=== PATIENT | female | born 1940 | race Caucasian/White ===

== ENCOUNTER 2023-04-30 12:58 | Inpatient (IN) | payer MEDICARE ==
[~2023-04-30] VITALS: Ht 165.1 cm; Wt 71.3 kg
[~2023-04-30 12:58] MED LIST: CALC600T2 PO; DOXY100C5 PO; ERGO400T3 PO; HYDR25TA PO; OMEP10 PO
[2023-04-30] MEDS ORDERED: ASPIRIN 325 MG TABLET PO ONE (13:45)
[2023-04-30] MEDS ORDERED: NITROGLYCERIN 0.4 MG SUBLINGUAL TABLET #25 SL ONE (13:45)
[2023-04-30 14:09] LABS: BASOPHILS % (AUTO) 0.8 % (0.0-2.0); EOSINOPHILS % (AUTO) 1.6 % (1.0-6.0); HEMATOCRIT 38.8 % (36-46); HEMOGLOBIN 13.2 g/dL (12.0-16.0); LYMPHOCYTES # (AUTO) 1.6 K/uL (1.0-4.8); LYMPHOCYTES % (AUTO) 25.3 % (22.0-44.0); MEAN CORPUSCULAR HGB CONC 34.1 G/dL (31.0-37.0); MEAN CORPUSCULAR VOLUME 91 fL (80-100); MONOCYTES # (AUTO) 0.8 K/uL (0.1-1.0); MONOCYTES % (AUTO) 11.7 % (2.0-9.0); NEUTROPHILS # (AUTO) 3.9 K/uL (1.8-7.7); NEUTROPHILS % (AUTO) 60.6 % (40.0-70.0); PLATELET COUNT (AUTO) 242 K/uL (150-450); RED BLOOD CELL COUNT(AUTO) 4.27 MIL/uL (4.00-5.20); WHITE BLOOD COUNT (AUTO) 6.4 K/uL (4.5-11.0)
[2023-04-30 14:26] LABS: ALANINE AMINOTRANSFERASE 34 U/L (12-78); ALBUMIN 3.9 g/dL (3.4-5.0); ALKALINE PHOSPHATASE 103 U/L (46-116); ASPARTATE AMINOTRANSFERASE 36 U/L (15-37); BILIRUBIN,TOTAL 1.1 mg/dL (0.1-1.0); CALCIUM, TOTAL 9.6 mg/dL (8.8-10.5); CHLORIDE 101 mmol/L (98-107); CREATININE 1.06 mg/dL (0.60-1.30); GLOMERULAR FILTR. RATE CALC 50 mL/min (>60); LIPASE 105 U/L (16-77); POTASSIUM 3.3 mmol/L (3.5-5.1); SODIUM SERUM 139 mmol/L (136-145); TOTAL PROTEIN, SERUM 7.7 g/dL (6.4-8.2); UREA NITROGEN, BLOOD 17 mg/dL (7-18)
[2023-04-30 14:27] LABS: TROPONIN I-HIGH SENSITIVITY 7 ng/L (<51)
[2023-04-30 14:30] LABS: LACTIC ACID 1.1 mmol/L (0.4-2.0)
[2023-04-30 14:37] LABS: ANION GAP 14 mmol/L (8-16); CARBON DIOXIDE 24 mmol/L (22-29); GLUCOSE,RANDOM 88 mg/dL (70-110)
[2023-04-30 14:54] LABS: APPEARANCE,URINE CLEAR (CLEAR); BILIRUBIN,URINE NEGATIVE (NEGATIVE); COLOR,URINE COLORLESS (YELLOW); GLUCOSE, URINE (UA) NEGATIVE (NEGATIVE); KETONES,URINE NEGATIVE (NEGATIVE); LEUKOCYTE ESTERASE ,URINE LARGE (NEGATIVE); NITRATE,URINE NEGATIVE (NEGATIVE); OCCULT BLOOD,URINE NEGATIVE (NEGATIVE); PH,URINE 5.5 (5.0-8.0); PROTEIN,URINE NEGATIVE (NEGATIVE); SPECIFIC GRAVITIY, URINE 1.005 (1.003-1.030); UROBILINOGEN,URINE <=1.0 mg/dL (<=1.0)
[2023-04-30 15:22] LABS: RBC,URINE 0-2 /HPF (0-2)
[2023-04-30 15:23] LABS: BACTERIA,URINE Many /HPF (None Seen)
[2023-04-30] MEDS ORDERED: POTASSIUM CHLORIDE 20 MEQ ER TABLET PO ONE (16:30)
[2023-04-30 16:48] LABS: COVID AG,FIA SOURCE NASAL SWAB
[2023-04-30] MEDS ORDERED: HydrALAZINE HCL 20 MG/ML VIAL IVP ONE (17:15)
[2023-04-30] MEDS ORDERED: CefTRIAXone 1 GM/DEXTROSE 50 ML IV ONE (17:15)
[2023-04-30 17:16] LABS: SARS-COV2 (COVID) ANTIGEN,FIA Negative (Negative)
[2023-04-30 17:30] LABS: TROPONIN I-HIGH SENSITIVITY 7 ng/L (<51)
[2023-04-30] MEDS ORDERED: CloNIDine HCL 0.1 MG TABLET PO PRN (18:00)
[2023-04-30] MEDS ORDERED: POTASSIUM CHLORIDE 20 MEQ ER TABLET PO PRN (18:00)
[2023-04-30] MEDS ORDERED: MAGNESIUM HYDROXIDE SUSPENSION 30 ML UDCUP PO PRN (18:00)
[2023-04-30] MEDS ORDERED: POTASSIUM CHL 10 MEQ/WATER 50 ML IV PRN (18:00)
[2023-04-30] MEDS ORDERED: ACETAMINOPHEN 325 MG TABLET PO PRN (18:00)
[2023-04-30] MEDS ORDERED: SODIUM CHLORIDE 0.9% 100 ML ONE (19:56)
[2023-04-30] MEDS ORDERED: IOHEXOL 350 MG/ML 100 ML VIAL ONE (19:56)
[2023-04-30] MEDS: AmLODIPine BESYLATE 10 MG TABLET PO SCH (20:56)
[2023-04-30] MEDS: LOSARTAN POTASSIUM 25 MG TABLET PO SCH (21:00)
[2023-04-30 22:42] VITALS: BP 154/73; PULSE 80; RESP 18; TEMP 97.7
[2023-04-30 23:58] VITALS: BP 128/86; PULSE 70; RESP 18; TEMP 98.1
[2023-05-01 06:15] VITALS: BP 159/70; PULSE 65; RESP 19; TEMP 98
[2023-05-01 07:01] LABS: CALCIUM, TOTAL 9.9 mg/dL (8.8-10.5); CREATININE 0.91 mg/dL (0.60-1.30)
[2023-05-01 07:35] VITALS: BP 154/75; PULSE 68; RESP 18; TEMP 97.7
[2023-05-01] MEDS: HEPARIN SODIUM,PORCINE 5,000 UNITS/ML VIAL SQ SCH ×3 (08:05→16:27)
[2023-05-01] MEDS: FAMOTIDINE 20 MG TABLET PO SCH (08:06)
[2023-05-01] MEDS: LOSARTAN POTASSIUM 25 MG TABLET PO SCH (08:06)
[2023-05-01] MEDS: AmLODIPine BESYLATE 10 MG TABLET PO SCH (08:06)
[2023-05-01] MEDS: ASPIRIN 81 MG CHEWABLE TABLET PO SCH (08:06)
[2023-05-01] MEDS ORDERED: LOSARTAN POTASSIUM 25 MG TABLET PO ONE (10:00)
[2023-05-01 12:31] VITALS: BP 175/75; PULSE 72; RESP 18; TEMP 98.1
[2023-05-01] MEDS ORDERED: CefTRIAXone 1 GM/DEXTROSE 50 ML IV SCH (14:00)
[2023-05-01 15:51] VITALS: BP 124/60; PULSE 67; RESP 17; TEMP 97
[2023-05-01] MEDS ORDERED: SODIUM CHLORIDE 0.9% 250 ML IV ONE (19:00)
[2023-05-01 20:15] VITALS: BP 148/59; PULSE 59; RESP 18; TEMP 98.2
[2023-05-01] MEDS: LOSARTAN POTASSIUM 50 MG TABLET PO SCH (21:07)
[2023-05-02] MEDS: HEPARIN SODIUM,PORCINE 5,000 UNITS/ML VIAL SQ SCH ×2 (00:05→09:24)
[2023-05-02 00:12] VITALS: BP 158/64; PULSE 158; PULSE 66; RESP 18; TEMP 98.3
[2023-05-02 05:20] VITALS: BP 152/64; PULSE 64; RESP 18; TEMP 98.2
[2023-05-02 08:21] VITALS: BP 151/58; PULSE 56; RESP 18; TEMP 98.3
[2023-05-02] MEDS: FAMOTIDINE 20 MG TABLET PO SCH (09:23)
[2023-05-02] MEDS: AmLODIPine BESYLATE 10 MG TABLET PO SCH (09:23)
[2023-05-02] MEDS: ASPIRIN 81 MG CHEWABLE TABLET PO SCH (09:24)
[2023-05-02] MEDS: LOSARTAN POTASSIUM 50 MG TABLET PO SCH (10:58)
[2023-05-02] MEDS ORDERED: AMLO-258 PO (11:45)
[2023-05-02] MEDS ORDERED: CIPR250T6 PO (11:46)
[2023-05-02] MEDS ORDERED: LOSA-382 PO (11:46)
[2023-05-02 12:05] VITALS: BP 149/58; PULSE 63; RESP 19; TEMP 97.9
== END 2023-05-02 13:10 | disposition home or self-care (01) | DRG 305 ==
LOC: EMS 13:15 → 5S 18:42
PROVIDERS: ADMIT Internal Medicine; ATTEND Internal Medicine
DX: I16.0 Hypertensive urgency (principal); N39.0 Urinary tract infection, site not specified; E87.6 Hypokalemia; I10 Essential (primary) hypertension; Z20.822 Contact with and (suspected) exposure to COVID-19; I48.91 Unspecified atrial fibrillation; Z90.710 Acquired absence of both cervix and uterus; Z90.49 Acquired absence of other specified parts of digestive tract; Z86.73 Personal history of transient ischemic attack (TIA), and cerebral infarction without residual deficits; Z88.2 Allergy status to sulfonamides; Z79.01 Long term (current) use of anticoagulants; Z79.899 Other long term (current) drug therapy
CPT/HCPCS: 71045; 74174; 74175; 80048; 80053; 81001; 83605; 83690; 84484; 85025; 87040; 87086; 87186; 93005; 93306; 99291; J0360; J0696; J1644; J7050; Q9967; 36415-L1; 36415-TC

== ENCOUNTER 2023-10-02 16:34 | Emergency (ER) | payer MEDICARE ==
[~2023-10-02] VITALS: Ht 165.1 cm; Wt 72.7 kg
[~2023-10-02 16:34] MED LIST changes: +AMLO-258 PO; +CIPR250T6 PO; -DOXY100C5 PO; -HYDR25TA PO; +LOSA-382 PO; -OMEP10 PO; +OMEP10CA38 PO
[2023-10-02 16:41] VITALS: BP 135/75; PULSE 62; RESP 16; TEMP 98.6
[2023-10-02] MEDS ORDERED: ATOR10TA PO (16:41)
[2023-10-02] MEDS ORDERED: APIX2.5T PO (16:41)
[2023-10-02] MEDS ORDERED: ACETAMINOPHEN 500 MG TABLET ONE (18:48)
[2023-10-02] MEDS: ACETAMINOPHEN 500 MG TABLET PO ONE (18:53)
[2023-10-02 19:03] LABS: BASOPHILS % (AUTO) 0.3 % (0.0-2.0); EOSINOPHILS % (AUTO) 0 % (1.0-6.0); HEMOGLOBIN 12.5 g/dL (12.0-16.0); LYMPHOCYTES # (AUTO) 1.6 K/uL (1.0-4.8); LYMPHOCYTES % (AUTO) 17.7 % (22.0-44.0); MEAN CORPUSCULAR HEMOGLOBIN 31.7 pg (26.0-34.0); MEAN CORPUSCULAR HGB CONC 33.8 G/dL (31.0-37.0); MEAN CORPUSCULAR VOLUME 94 fL (80-100); MONOCYTES # (AUTO) 0.9 K/uL (0.1-1.0); MONOCYTES % (AUTO) 9.6 % (2.0-9.0); NEUTROPHILS # (AUTO) 6.4 K/uL (1.8-7.7); NEUTROPHILS % (AUTO) 72.4 % (40.0-70.0); PLATELET COUNT (AUTO) 271 K/uL (150-450); RED BLOOD CELL COUNT(AUTO) 3.95 MIL/uL (4.00-5.20); RED CELL DISTRIBUTION WIDTH 15.2 % (11.5-14.5); WHITE BLOOD COUNT (AUTO) 8.8 K/uL (4.5-11.0)
[2023-10-02 19:12] LABS: ANION GAP 9 mmol/L (8-16); CALCIUM, TOTAL 9.1 mg/dL (8.8-10.5); CARBON DIOXIDE 24 mmol/L (22-29); CHLORIDE 102 mmol/L (98-107); CREATININE 1.02 mg/dL (0.60-1.30); GLOMERULAR FILTR. RATE CALC 52 mL/min (>60); GLUCOSE,RANDOM 118 mg/dL (70-110); POTASSIUM 3.3 mmol/L (3.5-5.1); SODIUM SERUM 135 mmol/L (136-145); UREA NITROGEN, BLOOD 29 mg/dL (7-18)
[2023-10-02 19:22] LABS: LACTIC ACID 1.5 mmol/L (0.4-2.0)
[2023-10-02 21:42] LABS: APPEARANCE,URINE CLEAR (CLEAR); BILIRUBIN,URINE NEGATIVE (NEGATIVE); COLOR,URINE COLORLESS (YELLOW); GLUCOSE, URINE (UA) NEGATIVE (NEGATIVE); KETONES,URINE NEGATIVE (NEGATIVE); LEUKOCYTE ESTERASE ,URINE MODERATE (NEGATIVE); NITRATE,URINE NEGATIVE (NEGATIVE); OCCULT BLOOD,URINE NEGATIVE (NEGATIVE); PROTEIN,URINE NEGATIVE (NEGATIVE); SPECIFIC GRAVITIY, URINE 1.009 (1.003-1.030); UROBILINOGEN,URINE <=1.0 mg/dL (<=1.0)
[2023-10-02 22:06] LABS: BACTERIA,URINE Many /HPF (None Seen); RBC,URINE None Seen /HPF (0-2)
== END 2023-10-02 22:33 | disposition admitted as inpatient to this hospital (09) ==
LOC: EMS 16:34
DX: N39.0 Urinary tract infection, site not specified (principal); I10 Essential (primary) hypertension; Z88.2 Allergy status to sulfonamides
CPT/HCPCS: 80048; 81001; 83605; 85025; 87086; 87186; 99283